=== PATIENT | female | born 1965 | race African-American/Black ===

== ENCOUNTER 2018-06-29 06:56 | Day surgery (SDC) | payer OTHER ==
[2018-06-22 09:59] LABS: HEMATOCRIT 40.3 % (36.0-47.0); HEMOGLOBIN 13.1 g/dL (12.0-15.5); MEAN CORPUSCULAR HEMOGLOBIN 23.4 pg (27.0-33.4); MEAN CORPUSCULAR HGB CONC 32.4 g/dL (32.0-36.0); MEAN CORPUSCULAR VOLUME 72 fl (80-97); PLATELET COUNT 148 10^3/uL (150-450); RED BLOOD COUNT 5.57 10^6/uL (3.72-5.28); RED CELL DISTRIBUTION WIDTH 14.7 % (11.5-14.0); WHITE BLOOD COUNT 5.3 10^3/uL (4.0-10.5)
[~2018-06-29 06:56] MED LIST: LACTATED RINGERS 1000 ML IV PRN; LIDOCAINE 0.5% INJ-PF (5 MG/ML) 50 ML SDV SUBCUT PRN
[2018-06-29] MEDS ORDERED: FENTANYL CITRATE INJ/PF 100 MCG/2 ML AMPUL ONE (07:55)
[2018-06-29] MEDS ORDERED: PROPOFOL INJ 200 MG/20 ML VIAL IV ONE (07:56)
[2018-06-29] MEDS ORDERED: MIDAZOLAM 2 MG/2 ML INJ ONE (07:56)
[2018-06-29] MEDS ORDERED: LIDOCAINE 1%/EPINEPHRINE INJ 20 ML VIAL ONE (10:16)
[2018-06-29] MEDS ORDERED: FENTANYL CITRATE INJ/PF 100 MCG/2 ML AMPUL IV PRN ×3 (10:36)
[2018-06-29] MEDS ORDERED: MORPHINE SULFATE 10 MG/ML INJ IV PRN (10:36)
[2018-06-29] MEDS ORDERED: DIPHENHYDRAMINE HCL 50 MG/ML VIAL IV PRN (10:36)
[2018-06-29] MEDS ORDERED: MEPERIDINE HCL/PF INJ 25 MG/1 ML DISP.SYRIN IV PRN (10:36)
[2018-06-29] MEDS ORDERED: PROMETHAZINE HCL INJ 25 MG/1 ML VIAL IV PRN ×2 (10:36)
[2018-06-29] MEDS ORDERED: OXYCODONE-ACETAMINOPHEN 5-325 MG TABLET PO PRN ×3 (10:36→11:08)
--- NOTE | 2018-06-29 11:08 | Discharge Summary ---
Discharge Summary (SDC) - Discharge Final Diagnosis: lipoma Date of Surgery: 06/29/18 - t Discharge Date: 06/29/18 Condition: Stable Treatment or Instructions: WOUND CARE: You may shower in 48 hours. Leave steri strips (paper bandaids) intact until follow up. Warm water/soap may wash over the wound. Do not scrub. Pat dry and cover with gauze and tape if needed. PAIN MANAGEMENT: You may take Toradol 10 mg one pill every six hours as needed for pain. FOLLOW UP: Follow up at [facility] in one week for wound evaluation. Call clinic sooner with questions/concerns. Prescriptions: Ketorolac Tromethamine [Toradol 10 mg Tablet] 10 mg PO Q6HP PRN #20 tablet PRN Reason: Referrals: EVIN GEE PA-C [Primary Care Provider] - Discharge Diet: As Tolerated Discharge Activity: Walk Frequently Report the Following to Your Physician Immediately: Fever over 101 Degrees, Unusual Bleeding, Redness, Swelling, Warmth, Drainage-Foul Smelling
--- NOTE | 2018-06-29 11:10 | Operative Report ---
Operative Report DATE OF SURGERY: 06/29/18 PREOPERATIVE DIAGNOSIS: Lipoma right flank POSTOPERATIVE DIAGNOSIS: Same OPERATION: Excision of right flank lipoma SURGEON: LYDIA IRVING MILLINERY TEACHER: COSTA MENESES ANESTHESIA: LMAC TISSUE REMOVED OR ALTERED: Lipoma COMPLICATIONS: None ESTIMATED BLOOD LOSS: Scant INTRAOPERATIVE FINDINGS: See below PROCEDURE: Patient was taken from the preop holding area with right flank lipoma was marked to the main operating room where LMAC anesthesia was induced. She was placed in the left lateral cutis position, right side up on the beanbag which was suctioned into position. The right flank was prepped and draped in sterile fashion with Betadine. Surgical plan surgical timeout were conducted. Skin and subcutaneous tissue was anesthetized with 1% plain lidocaine. Approximately 3-1/2 cm incision was made horizontally over the palpable mass. Skin and subcutaneous tissue was divided with the knife and electrocautery. Deep to the subcutaneous tissue the fascia overlying the latissimus dorsi muscle was opened, and the muscular, poorly circumscribed lipoma was debrided from the muscle fibers. Specimen was sent to pathology. We carefully inspected the subcutaneous tissue, and surrounding muscle and there was no evidence of residual lipoma. We felt the operation The wound was closed in layers with the fascia closed with 2-0 Vicryl suture, dermis closed with 3-0 Vicryl, and skin closed with Steri-Strips. Sterile dressing was applied. Patient tolerated procedure well, taken recovery in stable condition. The physician social and human services assistant, Ms. Anne, provided assistance during this case by: Assisting retracting tissue, instillation of local anesthesia and closure of skin incisions.
[2018-06-29] MEDS ORDERED: ONDANSETRON HCL INJ/PF 4 MG/2 ML SDV ONE (11:19)
[2018-06-29 12:56] VITALS: BP 150/92
== END 2018-06-29 12:50 | disposition home or self-care (01) ==
LOC: OROUT 06:56
PROVIDERS: ATTEND Surgery
DX: D17.1 Benign lipomatous neoplasm of skin and subcutaneous tissue of trunk (principal); Z01.818 Encounter for other preprocedural examination
CPT/HCPCS: 36415; 85027; 88304 ×2; 21932; J2250; J3010; J3490; J2405; J2704; 300